=== PATIENT | male | born 1995 | race Two or more races ===

== ENCOUNTER 2018-10-05 19:56 | Emergency (ER) | payer SELFPAY ==
[~2018-10-05] VITALS: Ht 160 cm; Wt 54.4 kg
[2018-10-05 20:32] VITALS: BP 117/69
[2018-10-05] MEDS ORDERED: LIDOCAINE (700MG/PATCH) PATCH. TP ONE (21:30)
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
== END 2018-10-05 23:04 | disposition home or self-care (01) ==
LOC: ER 19:56
DX: R07.81 Pleurodynia (principal); M25.561 Pain in right knee; V43.52XA Car driver injured in collision with other type car in traffic accident, initial encounter; Y93.89 Activity, other specified; Y92.410 Unspecified street and highway as the place of occurrence of the external cause; Y99.8 Other external cause status
CPT/HCPCS: 71046; 73562; 99283

== ENCOUNTER 2020-08-17 16:48 | Emergency (ER) | payer SELFPAY ==
[~2020-08-17] VITALS: Ht 167.6 cm; Wt 64.0 kg
--- NOTE | 2020-08-17 17:44 | PHYS DOC ---
Past Medical History Past Medical History: No Pertinent History Past Surgical History: No Surgical History Smoking Status: Never Smoker Alcohol Use: None Drug Use: None General Adult EDM: Chief Complaint: SEXUALLY TRANSMITTED DISEASE HPI: HPI: Patient is a 25 year old male who presents with 3 days of burning with urination. Denies fever, abdominal pain, nausea, vomiting, back pain. Denies any past medical history. Review of Systems: Review of Systems: Constitutional: Denies fever or chills. [] Eyes: Denies change in visual acuity. [] HENT: Denies nasal congestion or sore throat. [] Respiratory: Denies cough or shortness of breath. [] Cardiovascular: Denies chest pain or edema. [] GI: Denies abdominal pain, nausea, vomiting, bloody stools or diarrhea. [] : + dysuria. [] Musculoskeletal: Denies back pain or joint pain. [] Integument: Denies rash. [] Neurologic: Denies headache, focal weakness or sensory changes. [] Endocrine: Denies polyuria or polydipsia. [] Lymphatic: Denies swollen glands. [] Psychiatric: Denies depression or anxiety. [] Heart Score: Risk Factors: Risk Factors: DM, Current or recent (<one month) smoker, HTN, HLP, family history of CAD, obesity. Risk Scores: Score 0 - 3: 2.5% MACE over next 6 weeks - Discharge Home Score 4 - 6: 20.3% MACE over next 6 weeks - Admit for Clinical Observation Score 7 - 10: 72.7% MACE over next 6 weeks - Early Invasive Strategies Allergies: Allergies: Allergies Coded Allergies Type Severity Reaction Last Updated Verified No Known Drug Allergies 10/05/18 No Physical Exam: PE: Constitutional: Well developed, well nourished, no acute distress, non-toxic appearance. [] HENT: Normocephalic, atraumatic, bilateral external ears normal, oropharynx moist, no oral exudates, nose normal. [] Eyes: PERRLA, EOMI, conjunctiva normal, no discharge. [] Neck: Normal range of motion, no tenderness, supple, no stridor. [] Cardiovascular:Heart rate regular rhythm, no murmur [] Lungs & Thorax: Bilateral breath sounds clear to auscultation [] Abdomen: Bowel sounds normal, soft, no tenderness, no masses, no pulsatile masses. [] Skin: Warm, dry, no erythema, no rash. [] Back: No tenderness, no CVA tenderness. [] Extremities: No tenderness, no cyanosis, no clubbing, ROM intact, no edema. [] Neurologic: Alert and oriented X 3, normal motor function, normal sensory function, no focal deficits noted. [] Psychologic: Affect normal, judgement normal, mood normal. Normal physical exam [] EKG: EKG: [] Radiology/Procedures: Radiology/Procedures: [] Course & Med Decision Making: Course & Med Decision Making Pertinent Labs and Imaging studies reviewed. (See chart for details) See HPI. No penile discharge or sores to penis. Ambulatory with a steady gait. Speaks in full complete sentences. Skin pink warm and dry. Abdomen is soft and nontender. No CVA tenderness. Afebrile. Patient is treated with Rocephin and azithromycin in the ED. Patient eloped before discharge or results of urinalysis. [] Phil Disclaimer: Phil Disclaimer: This electronic medical record was generated, in whole or in part, using a voice recognition dictation system. Departure Departure Impression: Primary Impression: STD (male) Disposition: 07 AMA/ELOPED/LWBS Condition: STABLE Referrals: NO PCP (PCP) Patient Instructions: Sexually Transmitted Disease Additional Instructions: Follow-up with a urologist if needed. Tell all other sexual partners that you have been treated for sexually transmitted disease. Do not have sex for the next 10 days. Your test results will be back in 48 hours and you will be called only if they are positive. AMARJIT RHODES APRN Aug 17, 2020 17:44
[2020-08-17 17:45] VITALS: BP 113/71
[2020-08-17] MEDS ORDERED: AZITHROMYCIN 250 MG TABLET. PO ONE (17:45)
[2020-08-17] MEDS ORDERED: cefTRIAXone IM 500 MG VIAL. IM ONE (17:45)
[2020-08-17 17:49] LABS: BILIRUBIN,URINE NEGATIVE (NEG); CLARITY,URINE TURBID; COLOR,URINE YELLOW; NITRITE,URINE NEGATIVE (NEG); PROTEIN,URINE NEGATIVE (NEG-TRACE)
[2020-08-17 18:20] LABS: AMORPHOUS SEDIMENT,UR PRESENT /HPF; BACTERIA,URINE FEW /HPF (0-FEW); WBC,URINE 20-40 /HPF (0-4)
[2020-08-17 18:22] LABS: RBC,URINE RARE /HPF (0-2)
== END 2020-08-17 18:23 | disposition left against medical advice (07) ==
LOC: ER 16:48
DX: A64 Unspecified sexually transmitted disease (principal)
CPT/HCPCS: 81001; 87086; 87491; 87591; 96372; 99283; J0696